=== PATIENT | female | born 1990 | race Caucasian/White ===

== ENCOUNTER 2017-10-25 23:38 | Emergency (ER) | payer MEDICAID, OTHER ==
--- NOTE | 2017-10-26 00:25 | Emergency Department Record ---
History of Present Illness - General Chief Complaint: Abdominal Pain Stated Complaint: BACK PAIN/ABDOMINAL PAIN Time Seen by Provider: 10/26/17 00:18 Source: Patient Mode of Arrival: Ambulatory - History of Present Illness Initial Comments: the patient reports that she has been fatigued and not feeling well for 3 weeks. Tonight she awakened from sleep shakey, hot, chilling, and vomiting a large amount. Her bilateral "kidneys" hurt, her tummy feels crampy all over, and she has a mild headache without stiff neck, sore throat or URI symptoms. "I felt like this last time I had a kidney infection and was hospitalized. They said I was septic." She is [id number] 1 year ago as she is on merena. She is not concerned about STD's, monogamous with her , no vaginal discharge. MD Complaint: Abdominal pain, Flank pain Onset/Timin -: Hour(s) Radiation: None Severity: Mild Improves With: Nothing Worsens With: Nothing Associated Symptoms: Nausea, Vomiting - Related Data LMP (females 10-50): other Patient : (MURINA IUD) Previous Rx's Medication Instructions Recorded Ondansetron [Zofran Odt] 4 mg PO Q8H #7 tab.rapdis 10/26/17 Travel Screening - Travel/Exposure Within Last 30 Days Have you traveled within the last 30 days?: No - Travel/Exposure Within Last Year Have you traveled outside the [place] in the last year?: No - Additonal Travel Details Have you been exposed to anyone with a communicable illness?: No - Travel Symptoms Symptom Screening: None Review of Systems Reviewed: No additional complaints except as noted below Constitutional: Reports: As per HPI. Denies: Chills, Fever, Malaise, Night sweats, Weakness, Weight change Eyes: Reports: As per HPI. Denies: Eye discharge, Eye pain, Photophobia, Vision change ENT: Reports: As per HPI. Denies: Congestion, Dental pain, Ear pain, Epistaxis , Hearing loss, Throat pain Respiratory: Reports: As per HPI. Denies: Cough, Dyspnea, Hemoptysis, Stridor, Wheezes Cardiovascular: Reports: As per HPI. Denies: Arrhythmia, Chest pain, Dyspnea on exertion, Edema, Murmurs, Orthopnea, Palpitations, Paroxysmal nocturnal dyspnea, Rheumatic Fever, Syncope Endocrine: Reports: As per HPI. Denies: Fatigue, Heat or cold intolerance, Polydipsia, Polyuria Gastrointestinal: Reports: As per HPI. Denies: Abdominal pain, Constipation, Diarrhea, Hematemesis, Hematochezia, Melena, Nausea, Vomiting Genitourinary: Reports: As per HPI. Denies: Abnormal menses, Discharge, Dyspareunia, Dysuria, Frequency, Hematuria, Incontinence, Retention, Urgency Musculoskeletal: Reports: As per HPI. Denies: Arthralgia, Back pain, Gout, Joint swelling, Myalgia, Neck pain Skin: Reports: As per HPI. Denies: Bruising, Change in color, Change in hair/ nails, Lesions, Pruritus, Rash Neurological: Reports: As per HPI. Denies: Abnormal gait, Confusion, Headache, Numbness, Paresthesias, Seizure, Tingling, Tremors, Vertigo, Weakness Psychiatric: Reports: As per HPI. Denies: Anxiety, Auditory hallucinations, Depression, Homicidal thoughts, Suicidal thoughts, Visual hallucinations Hematological/Lymphatic: Reports: As per HPI. Denies: Anemia, Blood Clots, Easy bleeding, Easy bruising, Swollen glands Past Medical History - SOCIAL HISTORY Smoking Status: Current every day smoker Alcohol Use: Occasional Drug Use: None - RESPIRATORY Hx Respiratory Disorders: No - CARDIOVASCULAR Hx Cardio Disorders: No - NEURO Hx Neuro Disorders: No - GI Hx GI Disorders: No - Hx Genitourinary Disorders: No - ENDOCRINE Hx Endocrine Disorders: No - MUSCULOSKELETAL Hx Musculoskeletal Disorders: No - PSYCH Hx Psych Problems: No - HEMATOLOGY/ONCOLOGY Hx Hematology/Oncology Disorders: No Family Medical History Any Significant Family History?: No Physical Exam - General General Appearance: Alert, Oriented x3, Cooperative, Moderate distress - Head Head exam: Normal inspection - Eye Eye exam: Normal appearance, PERRL, EOMI. negative: Nystagmus Pupils: Normal accommodation - ENT ENT exam: Normal exam, Mucous membranes dry, Normal external ear exam, Normal orophraynx, TM's normal bilaterally Ear exam: Normal external inspection. negative: External canal tenderness Nasal Exam: Normal inspection. negative: Discharge, Sinus tenderness Mouth exam: Normal external inspection, Tongue normal Teeth exam: Normal inspection. negative: Dental caries Throat exam: Normal inspection. negative: Tonsillar erythema, Tonsillar exudate - Neck Neck exam: Normal inspection, Full ROM. negative: Lymphadenopathy, Meningismus , Tenderness - Respiratory Respiratory exam: Normal lung sounds bilaterally. negative: Chest wall tenderness, Respiratory distress - Cardiovascular Cardiovascular Exam: Regular rate, Normal rhythm, Normal heart sounds - GI/Abdominal GI/Abdominal exam: Soft, Normal bowel sounds, Tenderness (diffuse vague tenderness entire abdomen in all quadrants. No rebound, distantion, or rigidity. ) - Rectal Rectal exam: Deferred - exam: Deferred - Extremities Extremities exam: Normal inspection, Full ROM, Normal capillary refill. negative: Calf tenderness, Pedal edema, Tenderness - Back Back exam: Reports: Normal inspection, CVA tenderness (R), CVA tenderness (L), Full ROM. Denies: Muscle spasm, Rash noted, Tenderness - Neurological Neurological exam: Alert, CN II-XII intact, Normal gait, Oriented X3, Reflexes normal - Psychiatric Psychiatric exam: Normal affect, Normal mood - Skin Skin exam: Dry, Intact, Normal color, Warm Course Vital Signs 10/26/17 00:13 Temperature 98.5 F Pulse Rate 79 Respiratory 20 Rate Blood Pressure 114/72 Pulse Ox 96 - Reevaluation(s) Reevaluation #1: Patient states her pain is essentially gone now. She has no nausea, has not vomited. Due to her elevated WBC's she agrees to return tonight for recheck and will return sooner if worsened. Repeat exam shows a nontender abdomen which is soft. She has a trace of left flank ache which is not reproduceable. 10/26/17 02:45 Medical Decision Making - Management Options MDM Management: Additional Work-up Planned (e.g. ADM/Transfer/OP Study) ( Recheck abdominal pain/ illeus tonight) - Data Complexity MDM Data: Labs Ordered and/or Reviewed, X-Ray Ordered and/or Reviewed (CT abd/ pelvis: A few prominent loops of small bowel in left and central abdomen, nonspecific, could relate to mild enteritis or ileus. No renal, ureteral, or bladder calculi or obstructive uropathy. Per Vrad.) - Lab Data Result diagrams: 10/26/17 00:50 10/26/17 00:50 Disposition Disposition: Discharge Clinical Impression: Acute abdominal pain in left flank, Ileus, unspecified Disposition: Home, Self-Care Condition: (1) Good Instructions: Abdominal Pain (ED) Additional Instructions: Clear liquids and push fluids. Rest at home. Recheck here tonight at 7 p.m. Return to [facility]Dept if worsened sooner. zofran every 8 hours if needed for nausea. PCP referral list for routine care and follow up. Prescriptions: Ondansetron [Zofran Odt] 4 mg PO Q8H #7 tab.rapdis Quality - Quality Measures Quality Measures: N/A - Blood Pressure Screening Does Patient Have Any of the Following: No Blood Pressure Classification: Normal BP Reading Systolic Measurement: 114 Diastolic Measurement: 72 Screening for High Blood Pressure: < Normal BP, F/U Not Required > [G8783]
[2017-10-26] MEDS ORDERED: ONDANSETRON HCL IV 4 MG/2 ML VIAL IV ONE (00:31)
[2017-10-26] MEDS ORDERED: 0.9 % SODIUM CHLORIDE 1,000 ML BAG IV ONE (00:31)
[2017-10-26 00:57] LABS: BASO % 0.1 % (0-6); EOS % 1.5 % (0-6); HEMATOCRIT 45.9 % (35.0-47.0); HEMOGLOBIN 15.6 gm/dl (11.6-16.0); LYMPH % 6.2 % (16-45); MEAN CELL VOLUME 87.6 fl (81-97); MEAN CORPUSCULAR HEMOGLOBIN 29.8 pg (27-33); MEAN PLATELET VOLUME 10.3 fl (7.4-10.4); MONO % 4.8 % (0-9); PLATELET COUNT 167 K/uL (130-400); RED BLOOD COUNT 5.24 M/uL (3.80-5.40); RED CELL DISTRIBUTION WIDTH 12.2 % (11.5-14.5); WHITE BLOOD COUNT W/O DIFF 14.4 K/uL (4.2-12.2)
[2017-10-26 00:57] LABS: URINE APPEARANCE CLEAR; URINE BILIRUBIN NEGATIVE (NEGATIVE); URINE BLOOD NEGATIVE (NEGATIVE); URINE COLOR YELLOW; URINE GLUCOSE (UA) NEGATIVE (NEGATIVE); URINE KETONE 15 mg/dL (NEGATIVE); URINE LEUKOCYTE ESTERASE NEGATIVE (NEGATIVE); URINE NITRITE NEGATIVE (NEGATIVE); URINE PROTEIN NEGATIVE (NEGATIVE); URINE UROBILINOGEN 0.2 E.U./dL (0.20 - 1.00)
[2017-10-26 01:16] LABS: HCG,QUALITATIVE URINE NEGATIVE (NEGATIVE)
[2017-10-26 01:19] LABS: BLOOD UREA NITROGEN 13 mg/dL (6-20); CREATININE 0.3 mg/dL (0.5-0.9); EST GLOMERULAR FILTRATION RATE > 60 mL/min
[2017-10-26 01:20] LABS: TOTAL PROTEIN 7.2 g/dL (6.6-8.7)
[2017-10-26 01:21] LABS: GLUCOSE,RANDOM 102 mg/dL (74-109)
[2017-10-26 01:24] LABS: ALBUMIN 4.5 g/dL (4.0-5.0); ALKALINE PHOSPHATASE 120 U/L (35-104); ALT/SGPT 11 U/L (<33); AST/SGOT 13 U/L (10.0-35.0); LIPASE 33 U/L (13-60)
[2017-10-26 01:25] LABS: BILIRUBIN,DIRECT < 0.2 mg/dL (0-0.3)
--- NOTE | 2017-10-26 09:51 | CT SCAN REPORT ---
EXAM: CT OF THE ABDOMEN AND PELVIS WITHOUT CONTRAST HISTORY: PAIN. TECHNIQUE: CT of the abdomen and pelvis was performed without oral or IV contrast. This limits evaluation of bowel and solid visceral organs. Comparison: Prior CT from 09/27/09. FINDINGS: Limited evaluation of the lung bases is unremarkable. The osseous structures are grossly intact. Limited evaluation of the liver, spleen, adrenal glands, pancreas, and kidneys is unremarkable. The previously described nonobstructing renal calculus is not demonstrated on this exam. Multiple phleboliths in the pelvis. The urinary bladder is incompletely distended, limiting its evaluation. No definitive urinary tract calculi or hydronephrosis. IUD in place. Probable dominant follicle of the right ovary measuring 2.7 x 2.5 cm. There is a large amount of stool in the colon. No gross evidence for bowel obstruction. No free air or free fluid. IMPRESSION: 1. NEGATIVE FOR URINARY TRACT CALCULUS OR HYDRONEPHROSIS. 2. PROBABLE DOMINANT FOLLICLE OF THE RIGHT OVARY, ABOVE. IUD IN PLACE. 3. THERE IS A LARGE AMOUNT OF STOOL IN THE COLON. JOB NUMBER: [id number] [facility]
== END 2017-10-26 03:06 | disposition home or self-care (01) ==
LOC: ER 23:38
DX: K56.7 Ileus, unspecified (principal); R51 Headache; R11.2 Nausea with vomiting, unspecified; R53.83 Other fatigue; M54.5 Low back pain
CPT/HCPCS: 99284 ×2; 96374; 96361; 83605; 83690; 80076; 80048; 81003; 81025; 85027; 74176; J2405; J7030

== ENCOUNTER 2017-10-26 19:52 | Emergency (ER) | payer OTHER ==
[2017-10-26] MEDS ORDERED: ONDANSETRON HCL IV 4 MG/2 ML VIAL IV ONE (20:16)
[2017-10-26] MEDS ORDERED: 0.9 % SODIUM CHLORIDE 1,000 ML BAG IV ONE (20:16)
--- NOTE | 2017-10-26 20:20 | Emergency Department Record ---
History of Present Illness - General Chief Complaint: Wound, check Stated Complaint: LOWER BACK PAIN AND ABD PAIN Time Seen by Provider: 10/26/17 20:16 Source: Patient - History of Present Illness Initial Comments: Patient is here for a scheduled recheck of abdominal pain with illeus on her CT last evening. She states she is about the same, she has been keeping fluids down fine but continues to have mild left abdomen and left flank discomfort without nausea, vomiting or diarrhea. She is passing flatus. She has 4 children and has been caring for them today, has been doing OK, but it not worse from last night. Onset/Timin -: Hour(s) Returns Today for: Other Symptoms Since Prior Visit: No new symptoms Associated Symptoms: Abdominal pain - Related Data Home Medications Medication Instructions Recorded Confirmed Last Taken No Home Med [NO HOME MEDS] 10/26/17 10/26/17 Unknown Allergies Allergy/AdvReac Type Severity Reaction Status Date / Time No Known Drug Allergies Allergy Verified 10/26/17 20:08 Travel Screening - Travel/Exposure Within Last 30 Days Have you traveled within the last 30 days?: No - Travel/Exposure Within Last Year Have you traveled outside the [place] in the last year?: No - Additonal Travel Details Have you been exposed to anyone with a communicable illness?: No - Travel Symptoms Symptom Screening: None Review of Systems Reviewed: No additional complaints except as noted below Constitutional: Reports: As per HPI. Denies: Chills, Fever, Malaise, Night sweats, Weakness, Weight change Eyes: Reports: As per HPI. Denies: Eye discharge, Eye pain, Photophobia, Vision change ENT: Reports: As per HPI. Denies: Congestion, Dental pain, Ear pain, Epistaxis , Hearing loss, Throat pain Respiratory: Reports: As per HPI. Denies: Cough, Dyspnea, Hemoptysis, Stridor, Wheezes Cardiovascular: Reports: As per HPI. Denies: Arrhythmia, Chest pain, Dyspnea on exertion, Edema, Murmurs, Orthopnea, Palpitations, Paroxysmal nocturnal dyspnea, Rheumatic Fever, Syncope Endocrine: Reports: As per HPI. Denies: Fatigue, Heat or cold intolerance, Polydipsia, Polyuria Gastrointestinal: Reports: As per HPI. Denies: Abdominal pain, Constipation, Diarrhea, Hematemesis, Hematochezia, Melena, Nausea, Vomiting Genitourinary: Reports: As per HPI. Denies: Abnormal menses, Discharge, Dyspareunia, Dysuria, Frequency, Hematuria, Incontinence, Retention, Urgency Musculoskeletal: Reports: As per HPI. Denies: Arthralgia, Back pain, Gout, Joint swelling, Myalgia, Neck pain Skin: Reports: As per HPI. Denies: Bruising, Change in color, Change in hair/ nails, Lesions, Pruritus, Rash Neurological: Reports: As per HPI. Denies: Abnormal gait, Confusion, Headache, Numbness, Paresthesias, Seizure, Tingling, Tremors, Vertigo, Weakness Psychiatric: Reports: As per HPI. Denies: Anxiety, Auditory hallucinations, Depression, Homicidal thoughts, Suicidal thoughts, Visual hallucinations Hematological/Lymphatic: Reports: As per HPI. Denies: Anemia, Blood Clots, Easy bleeding, Easy bruising, Swollen glands Past Medical History - SOCIAL HISTORY Smoking Status: Former smoker Alcohol Use: Rare Drug Use: None - RESPIRATORY Hx Respiratory Disorders: No - CARDIOVASCULAR Hx Cardio Disorders: No - NEURO Hx Neuro Disorders: No - GI Hx GI Disorders: No - Hx Genitourinary Disorders: No - ENDOCRINE Hx Endocrine Disorders: No - MUSCULOSKELETAL Hx Musculoskeletal Disorders: No - PSYCH Hx Psych Problems: No - HEMATOLOGY/ONCOLOGY Hx Hematology/Oncology Disorders: No Family Medical History Any Significant Family History?: Yes Hx Heart Disease: Grandparents Physical Exam - General General Appearance: Alert, Oriented x3, Cooperative, No acute distress - Head Head exam: Normal inspection - Eye Eye exam: Normal appearance, PERRL Pupils: Normal accommodation - ENT ENT exam: Normal exam, Mucous membranes moist, Normal external ear exam, Normal orophraynx, TM's normal bilaterally Ear exam: Normal external inspection. negative: External canal tenderness Nasal Exam: Normal inspection. negative: Discharge, Sinus tenderness Mouth exam: Normal external inspection, Tongue normal Teeth exam: Normal inspection. negative: Dental caries Throat exam: Normal inspection. negative: Tonsillar erythema, Tonsillar exudate - Neck Neck exam: Normal inspection, Full ROM. negative: Tenderness - Respiratory Respiratory exam: Normal lung sounds bilaterally. negative: Respiratory distress - Cardiovascular Cardiovascular Exam: Regular rate, Normal rhythm, Normal heart sounds - GI/Abdominal GI/Abdominal exam: Soft, Normal bowel sounds, Tenderness (left middle quadrant into left flank mildly tender on palpation). negative: Distended, Guarding, Rebound, Rigid - Rectal Rectal exam: Deferred - exam: Deferred - Extremities Extremities exam: Normal inspection, Full ROM, Normal capillary refill. negative: Tenderness - Back Back exam: Reports: Normal inspection, Full ROM. Denies: Muscle spasm, Rash noted, Tenderness - Neurological Neurological exam: Alert, Normal gait, Oriented X3, Reflexes normal - Psychiatric Psychiatric exam: Normal affect, Normal mood - Skin Skin exam: Dry, Intact, Normal color, Warm Course Vital Signs 10/26/17 10/26/17 19:57 19:59 Temperature 97.9 F 97.9 F Pulse Rate 75 Pulse Rate [ 80 Pulse Ox Probe] Respiratory 18 16 Rate Blood Pressure 108/73 Blood Pressure 108/73 [Left Arm] Pulse Ox 99 98 - Reevaluation(s) Reevaluation #1: Patient continues to feel better. Her WBC count has normalized from last night. She states her discomfort is very minimal and intermittent. She will continue to stay on clear to full liquids and recheck with he PCP as needed. 10/26/17 21:14 Medical Decision Making - Management Options MDM Management: No Additional Work-up Planned - Data Complexity MDM Data: Labs Ordered and/or Reviewed (WBC 5.7) - Lab Data Result diagrams: 10/26/17 20:25 10/26/17 20:25 Disposition Disposition: Discharge Clinical Impression: Abdominal pain Qualifiers: Abdominal location: left upper quadrant Qualified Code(s): R10.12 - Left upper quadrant pain Disposition: Home, Self-Care Condition: (1) Good Instructions: Abdominal Pain (ED) Additional Instructions: Continue clear liquids and push fluids. Follow up with PCP as needed. Forms: Patient Portal Access Quality - Quality Measures Quality Measures: N/A - Blood Pressure Screening Does Patient Have Any of the Following: No Blood Pressure Classification: Normal BP Reading Systolic Measurement: 108 Diastolic Measurement: 73 Screening for High Blood Pressure: < Normal BP, F/U Not Required > [G8783]
[2017-10-26 20:39] LABS: BASO % 0.4 % (0-6); EOS % 3.4 % (0-6); GRAN % 60.4 % (47-80); HEMATOCRIT 43.9 % (35.0-47.0); HEMOGLOBIN 14.7 gm/dl (11.6-16.0); MEAN CELL VOLUME 88.5 fl (81-97); MEAN CORPUSCULAR HEMOGLOBIN 29.6 pg (27-33); MEAN CORPUSCULAR HGB CONC 33.5 g/dl (32-36); MEAN PLATELET VOLUME 10.3 fl (7.4-10.4); MONO % 11.8 % (0-9); PLATELET COUNT 164 K/uL (130-400); RED BLOOD COUNT 4.96 M/uL (3.80-5.40); RED CELL DISTRIBUTION WIDTH 12.2 % (11.5-14.5); WHITE BLOOD COUNT W/O DIFF 5.7 K/uL (4.2-12.2)
[2017-10-26 20:53] LABS: BLOOD UREA NITROGEN 8 mg/dL (6-20); CREATININE 0.3 mg/dL (0.5-0.9); EST GLOMERULAR FILTRATION RATE > 60 mL/min
[2017-10-26 20:54] LABS: TOTAL PROTEIN 6.9 g/dL (6.6-8.7)
[2017-10-26 20:56] LABS: GLUCOSE,RANDOM 99 mg/dL (74-109)
[2017-10-26 20:58] LABS: ALB/GLOB RATIO 1.6 (1.1-1.8); ALBUMIN 4.2 g/dL (4.0-5.0); ALT/SGPT 10 U/L (<33); AST/SGOT 12 U/L (10.0-35.0)
[2017-10-26 20:59] LABS: ALKALINE PHOSPHATASE 110 U/L (35-104)
== END 2017-10-26 21:30 | disposition home or self-care (01) ==
LOC: ER 19:52
DX: R10.12 Left upper quadrant pain (principal); M54.5 Low back pain
CPT/HCPCS: 99284 ×2; 96374; 85025; 80053; J2405; J7030